=== PATIENT | female | born 1955 | race Caucasian/White ===

== ENCOUNTER → 2024-02-11 | Outpatient (CLI) | payer MEDICARE, BC ==
[~2024-02-11] MED LIST: ASPI-1264 PO; DEXL60CA3 PO; LEVO100T PO; MAGN400C PO; TOLT4CAP28 PO
== END | disposition home or self-care (01) ==
LOC: RAD 14:13
PROVIDERS: ATTEND Internal Medicine Gastroenterology
DX: R13.10 Dysphagia, unspecified (principal)
CPT/HCPCS: 74230